=== PATIENT | female | born 1970 | race Caucasian/White ===

== ENCOUNTER 2017-04-12 22:57 | Day surgery (SDC) | payer OTHER ==
--- NOTE | ~2017-04-12 | EGD ---
EGD REPORT [facility] [address] [address] NAME: HALLIE DOCKERY : [birth year] STATUS : REG [facility]#: [id number] AGE: 47 ADM/REG DATE : 04/12/17 MR#: [id number] REPORT SERV DATE: 04/13/17 DICTATED BY: SPENCER JESUS DATE: 04/13/17 REPORT STATUS : Draft [facility] DATE: 04/13/17 [facility] Patient Name: Hallie Dockery Date of : 1970 Attending MD: SPENCER JESUS MD Procedure Date No Time: 04/13/2017 Procedure: Upper GI endoscopy Indications: food bolus Referring MD: ADAIR WINN Medicines: General Anesthesia Complications: No immediate complications. Procedure: Pre-Anesthesia Assessment: - ASA Grade Assessment: III - A patient with severe systemic disease. - ASA Grade Assessment: E - Emergency. After obtaining informed consent, the endoscope was passed under direct vision. Throughout the procedure, the patient's blood pressure, pulse, and oxygen saturations were monitored continuously. The GIF [id number] was introduced through the mouth, and advanced to the jejunum. The upper GI endoscopy was accomplished without difficulty. The patient tolerated the procedure. Findings: Food was found in the lower third of the esophagus, at the gastroesophageal junction and in the cardia. 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 A gastric pouch with a small size was found containing food debris. The staple line appeared intact. The gastrojejunal anastomosis was characterized by erythema. Impression: - Food in the lower third of the esophagus, at the gastroesophageal junction and in the cardia. - Gastric bypass with a small-sized pouch intact staple line. Recommendation: - Clear liquid diet for 1 day. - Full liquid diet for 2 days. - Soft diet. - f/u dr atkinson in 1 week Procedure Code(s): --- Professional --- 59574, Esophagogastroduodenoscopy, flexible, transoral; diagnostic, including collection of specimen(s) by brushing or washing, when performed (separate procedure) EGD REPORT [facility] [address] [place]. [address] NAME: HALLIE DOCKERY : [birth year] STATUS : REG [facility] PAT#: [id number] AGE: 47 ADM/REG DATE : 04/12/17 MR#: [id number] REPORT SERV DATE: 04/13/17 DICTATED BY: SPENCER JESUS. DATE: 04/13/17 REPORT STATUS : Draft TRANSCRIBED BY: [employer] DATE: 04/13/17 Diagnosis Code(s): --- Professional --- T18.128A, Food in esophagus causing other injury, initial encounter Z98.84, Bariatric surgery status CPT copyright 2013 [employer]. All rights reserved. The codes documented in this report are preliminary and upon marriage and family teacher review may be revised to meet current compliance requirements. SPENCER JESUS MD 04/13/2017 1:45 AM This report has been signed electronically. Number of Addenda: 0 Note Initiated On: 04/13/2017 12:10 AM Scope Withdrawal Time 0 hours 0 minutes 0 seconds [address] [place] [address]
[2017-04-12] MEDS ORDERED: SUCR PO (23:24)
[2017-04-12] MEDS ORDERED: CYMBALTA60 PO (23:24)
[2017-04-12] MEDS ORDERED: TOPAMAX100 PO (23:25)
[2017-04-12] MEDS ORDERED: XANAX2 MG PO (23:25)
[2017-04-12] MEDS ORDERED: IMITREX50 PO (23:26)
[2017-04-12] MEDS ORDERED: VOLTAREN1 % TOP (23:27)
[2017-04-12] MEDS ORDERED: SOMATAB PO (23:27)
[2017-04-12] MEDS ORDERED: PROAIR HFA INH (23:28)
[2017-04-12] MEDS ORDERED: DIL4TAB PO (23:28)
[2017-04-12] MEDS ORDERED: LYRICA150 MG PO (23:29)
[2017-04-12] MEDS ORDERED: REQUIP4 MG PO (23:29)
[2017-04-12] MEDS ORDERED: FLONASE NAS (23:29)
[2017-04-12] MEDS ORDERED: VITD PO (23:30)
== END 2017-04-13 23:59 | disposition home health service (06) ==
LOC: ER 22:57 → SDC 23:50
PROC: 0DJ08ZZ Inspection of Upper Intestinal Tract, Via Natural or Artificial Opening Endoscopic (ICD-10-PCS; principal; 2017-04-12)
DX: T18.128A Food in esophagus causing other injury, initial encounter (principal); M06.9 Rheumatoid arthritis, unspecified; M35.00 Sjogren syndrome, unspecified; G25.81 Restless legs syndrome; F17.200 Nicotine dependence, unspecified, uncomplicated; Z95.1 Presence of aortocoronary bypass graft; Z98.84 Bariatric surgery status
CPT/HCPCS: 96374; 96375; 99284; J0330; J1610; J2405